=== PATIENT | female | born 2000 | race Caucasian/White ===

== ENCOUNTER 2018-12-03 08:13 | Inpatient (IN) | payer MEDICAID ==
[~2018-12-03] VITALS: Ht 152.4 cm; Wt 75.7 kg
[2018-12-03 08:18] VITALS: Ht 152.4 cm; Wt 75.7 kg
[2018-12-03 08:19] VITALS: BP 120/63; PULSE 106; RESP 17
[2018-12-03] MEDS ORDERED: AMPICILLIN 2 GM/NS (PMX) 100 ML IV ONE (08:30)
[2018-12-03] MEDS ORDERED: LIDOCAINE 1% (MPF) 30 ML INJ INJ PRN (08:30)
[2018-12-03] MEDS ORDERED: OXYTOCIN 30 UNITS/LR 500 ML IV SCH ×3 (08:30→23:00)
[2018-12-03] MEDS ORDERED: CARBOPROST 250 MCG INJ IM PRN (08:30)
[2018-12-03] MEDS ORDERED: MISOPROSTOL 200 MCG TAB PR PRN (08:30)
[2018-12-03] MEDS ORDERED: METHYLERGONOVINE 0.2 MG INJ IM PRN (08:30)
[2018-12-03] MEDS ORDERED: OXYTOCIN 30 UNITS/LR 500 ML IV PRN (08:30)
[2018-12-03] MEDS: LACTATED RINGER'S 1,000 ML IV SCH ×3 (09:25→23:48)
[2018-12-03] MEDS ORDERED: PNV11TAB PO (09:26)
--- NOTE | 2018-12-03 10:30 | TRIAGE ---
OB Triage Datetime Report Generated by CPN: 12/03/2018 10:29 Datetime: 12/03/2018 09:23 Maternal Assessment Level of Consciousness: Fully Conscious DTR's/Clonus: DTRs 2+ Headache: Denies Nausea/Vomiting: Denies RUQ Epigastric Pain: Denies Labor Evaluation Frequency: 1-2-4 Monitor Mode: External Duration (sec)2399: 60-80 Quality: Mild Pattern: Normal: <= 5 Contractions in 10 Minutes Resting Tone [place]: Relaxed Heart Rate FHR Baseline Rate: 140 Monitor Mode: External US FHR Baseline Changes: No Baseline Change Variability: Moderate 6-25 bpm Decelerations: None Category: Category I Membrane Status: Intact Datetime: 12/03/2018 09:17 Labor Evaluation Frequency: 1-3 Monitor Mode: External Duration (sec)2399: 50-60 Quality: Mild Pattern: Normal: <= 5 Contractions in 10 Minutes Resting Tone [place]: Relaxed Heart Rate FHR Baseline Rate: 140 Monitor Mode: External US FHR Baseline Changes: No Baseline Change Variability: Moderate 6-25 bpm Accelerations: 15X15 Decelerations: None Category: Category I Datetime: 12/03/2018 09:16 Vaginal Exam Dilatation (cms): 3.0 Effacement (%): 70 Station: -2 Exam By: DR PRIETO Vaginal Bleeding: None Cervix, Consistency: Soft Cervix, Position: Anterior Presentation 'A': Cephalic Lie 'A': Longitudinal Datetime: 12/03/2018 08:42 Assessment Type: Admission Assessment Time of Arrival: 12/03/2018 08:42 EGA: 39.4 Arrived By: Ambulatory Arrived From: triage Vaginal Bleeding: Small Maternal Assessment Level of Consciousness: Fully Conscious DTR's/Clonus: DTRs 2+; No Clonus Headache: Denies Blurred Vision: No Respiratory Effort: Unlabored; Regular Rhythm; Equal Expansion Breath Sounds, Left: Clear and Equal Breath Sounds, Right: Clear and Equal Nausea/Vomiting: Denies RUQ Epigastric Pain: Denies Lower Extremities Edema: Bilateral Lower Extremities Degree: 1+ Upper Extremities Edema: None Degree: None Facial Edema: None Fall Risk Assessment History of Falling: (0) No Secondary Diagnosis: (0) No Ambulatory Aid: (0) Bedrest/Nurse Assist IV Therapy: (0) No Gait: (0) Normal/Bedrest/Immobile Mental Status: (0) Oriented to Own Ability Fall Score: 0 Fall Risk Score Definition: No Risk: No action required Labor Evaluation Frequency: 2-4 Duration (sec)2399: 50-60 Quality: Mild Pattern: Normal: <= 5 Contractions in 10 Minutes Resting Tone [place]: Relaxed Pain Assessment Pain Scale: 4 Pain Presence: Intermittent Pain Type: Cramping; Contraction Pain Location: Abdomen; Back Pain Goal: 6 Vaginal Exam Dilatation (cms): 3.0 Effacement (%): 70 Station: -2 Membrane Status: Intact Datetime: 12/03/2018 08:24 Assessment Type: Triage Maternal Assessment Level of Consciousness: Fully Conscious DTR's/Clonus: DTRs 2+; No Clonus Headache: Denies Blurred Vision: No Respiratory Effort: Unlabored; Regular Rhythm; Equal Expansion Breath Sounds, Left: Clear and Equal Breath Sounds, Right: Clear and Equal Nausea/Vomiting: Denies RUQ Epigastric Pain: Denies Lower Extremities Edema: None Degree: None Upper Extremities Edema: None Degree: None Facial Edema: None Fall Risk Assessment History of Falling: (0) No Secondary Diagnosis: (0) No Ambulatory Aid: (0) Bedrest/Nurse Assist IV Therapy: (0) No Gait: (0) Normal/Bedrest/Immobile Mental Status: (0) Oriented to Own Ability Fall Score: 0 Fall Risk Score Definition: No Risk: No action required Datetime: 12/03/2018 08:22 Time of Arrival: 12/03/2018 08:05 EGA: 39.4 Arrived By: Ambulatory Arrived From: Home Chief Complaint: pt. came to hospital c/uo uc since 0400am, q3mins apart, pain level 5/10, deny sro m, deny vag. bleeding Movement: Present Time Contractions Began: 12/03/2018 04:00 Rupture of Membranes: Denies Vaginal Bleeding: Normal Show Vaginal Discharge: Denies Recent Sexual Intercouse: Denies Abdominal Trauma: Not Applicable Patient Complaints: Contractions Time Provider Notified: 12/03/2018 08:26 Provider Notified: Initial Plan: r/o labor Datetime: 12/03/2018 08:21 Presentation 'A': Cephalic Datetime: 12/03/2018 08:19 Vaginal Exam Dilatation (cms): 3.0 Effacement (%): 70 Station: -2 Exam By: edy rezac
--- NOTE | 2018-12-03 12:05 | PREOPHP ---
DATE OF ADMISSION: 12/03/2018 HISTORY OF PRESENT ILLNESS: 18-year-old 1, para 0, EDC 12/06/2018 intrauterine at 39 weeks and 4 days gestational age, presented to triage in labor. She denies any vaginal bleeding or discharge. [facility] care took place at [facility]. PAST MEDICAL HISTORY: None. MEDICATIONS: vitamins. PAST SURGICAL HISTORY: None. OBSTETRIC HISTORY: Primigravida. GYNECOLOGIC HISTORY: 10, regular 3 to 4 days. Denies any sexually transmitted disease. Sexually active with 1 partner. SOCIAL HISTORY: Denies any smoking, drugs or alcohol. FAMILY HISTORY: None. REVIEW OF SYSTEMS: All within normal except history of present illness. PHYSICAL EXAMINATION: HEENT: Within normal. LUNGS: CTA bilateral. CARDIOVASCULAR: S1, S2, regular rhythm. ABDOMEN: Gravid, nontender. Negative CVA bilateral. EXTREMITIES: Negative calf tenderness. PELVIC: Vaginal exam / -2 intact. heart tracing category 1. [place] regular contractions. ASSESSMENT: Intrauterine at term in labor. PLAN: Admit patient for expected management, consider Pitocin as needed. Dictated By: TOM CONRAD/TASHA Conf#: [id number] DID#: [id number] CC: TOM PRIETO MD;*EndCC* MTDD
[2018-12-03] MEDS ORDERED: AMPICILLIN 1 GM/NS (PMX) 50 ML IV SCH (12:30)
[2018-12-03] MEDS: BUTORPHANOL 2 MG INJ IV PRN (20:06)
[2018-12-04] MEDS: BUTORPHANOL 2 MG INJ IV PRN (01:56)
[2018-12-04] MEDS: LACTATED RINGER'S 1,000 ML IV SCH ×3 (02:23→04:33)
[2018-12-04] MEDS ORDERED: FENTAnyl 2MCG/ML-ROPIV 0.2% 100 ML ONE (03:51)
[2018-12-04] MEDS ORDERED: FENTAnyl 2MCG/ML-ROPIV 0.2% 100 ML BAG EPI SCH (04:00)
[2018-12-04] MEDS ORDERED: NALOXONE (0.4 MG/ML) INJ IV PRN (04:00)
--- NOTE | 2018-12-04 04:00 | PREAC ---
Date/Time of Note Date/Time of Note DATE: 12/04/18 TIME: 03:59 Anesthesia Eval and Record Evaluation Time Pre-Procedure Interview DATE: 12/04/18 TIME: 03:59 Age 18 Sex female NPO: 8 hrs Preoperative diagnosis Labor Pain Planned procedure Labor Epidural Past Medical History Past Medical History: Includes : : (1), Para: (0), Gestational age: (39) Surgery & Anesthesia Issues No known issue Meds Anticoagulation: No Beta Vincenzo within 24 hr: No Reason Beta Vincenzo not given: Pt. not on B-Vincenzo Reported Medications [id number] ( 19) 1 Each Tablet, 1 TAB PO DAILY, TAB 12/03/18 Current Medications Lactated Ringer's 1,000 ml @ 125 mls/hr Q8H IV Last administered on 12/04/18at 03:29; Admin Dose 125 MLS/HR; Start 12/03/18 at 08:20 Butorphanol Tartrate (Stadol) 2 mg Q2H PRN IV .PAIN Last administered on 12/04/18at 01:56; Admin Dose 2 MG; Start 12/03/18 at 08:30 Lidocaine (Xylocaine 1% (Mpf)) 30 ml ONCE PRN INJ .EPISIOTOMY; Start 12/03/18 at 08:30 Oxytocin/Lactated Ringer's 500 ml @ 500 mls/hr ONCE POST IV ; Start 12/03/18 at 08:30 Oxytocin/Lactated Ringer's 500 ml @ 125 mls/hr POST IV ; Start 12/03/18 at 08:30 Oxytocin/Lactated Ringer's 500 ml @ 0 mls/hr ONCE PRN IV .VAGINAL BLEEDING; Start 12/03/18 at 08:30 Methylergonovine Maleate (Methergine) 0.2 mg ONCE PRN IM .VAGINAL BLEEDING; Start 12/03/18 at 08:30 Carboprost Tromethamine (Hemabate) 250 mcg ONCE PRN IM .VAGINAL BLEEDING; Start 12/03/18 at 08:30 Misoprostol (Cytotec) 1,000 mcg ONCE PRN OH .VAGINAL BLEEDING; Start 12/03/18 at 08:30 Oxytocin/Lactated Ringer's 500 ml @ 0 mls/hr FOR AUGMENTATION IV Last administered on 12/03/18at 23:47; Admin Dose 1 MLS/HR; Start 12/03/18 at 23:00 Meds reviewed: Yes Allergies Coded Allergies: No Known Allergy (Unverified , 12/03/18) Allergies Reviewed: Yes Labs/Studies Labs Reviewed: Reviewed by anesthesiologist Result Diagram: 12/03/18 0850 Laboratory Tests 12/03/18 08:50 Blood Bank Test 12/03/18 08:50 Antibody Screen NEGATIVE Blood Type O POSITIVE Rh Immune Globulin Candidate NO test: Positive Studies: ECG (n/a), CXR (n/a) Pre-procedure Exam Last vitals Vital Signs Date Temp Pulse Resp B/P (MAP) Pulse Ox O2 O2 Flow FiO2 Time Delivery Rate 12/03/18 98.2 106 17 120/63 08:19 (82) Airway: Adequate mouth opening, Adequate thyromental dist Mallampati: Mallampati II Teeth: Normal Lung: Normal Heart: Normal ASA Physical Status ASA physical status: 2 Emergency: None Planned Anesthetic Neuraxial: Epidural Planned Pain Management Epidural Pre-operative Attestations Prior to commencing anesthesia and surgery, the patient was re-evaluated, there was verification of: *The patient's identity *The results of appropriate recent lab work and preoperative vital signs *The above evaluation not changing prior to induction *Anesthetic plan, risk benefits, alternative and complications discussed with patient/family; questions answered; patient/family understands, accepts and wishes to proceed. BRUCE MONTALVO MD Dec 04, 2018 04:00
--- NOTE | 2018-12-04 04:02 | PAC ---
Date/Time of Note Date/Time of Note DATE: 12/04/18 TIME: 04:01 Post-Anesthesia Notes Post-Anesthesia Note Last documented vital signs Vital Signs Date Temp Pulse Resp B/P (MAP) Pulse Ox O2 O2 Flow FiO2 Time Delivery Rate 12/04/18 98.2 91 17 120/63 97 Room Air 04:09 (82) Activity: WNL Respiratory function: WNL Cardiovascular function: WNL Mental status: Baseline Pain reasonably controlled: Yes Hydration appropriate: Yes Nausea/Vomiting absent: Yes BRUCE MONTALVO MD Dec 04, 2018 04:02
[2018-12-04] MEDS ORDERED: CEFAZOLIN 2 GM/50 ML (PMX) 50 ML IVPB ONE (08:00)
[2018-12-04] MEDS ORDERED: MINERAL OIL LIGHT 10 ML VIAL TOP ONE (08:00)
[2018-12-04] MEDS ORDERED: OXYTOCIN 30 UNITS/LR 500 ML IV SCH (08:13)
--- NOTE | 2018-12-04 08:13 | LDN ---
Date/Time of Note Date/Time of Note DATE: 12/04/18 TIME: 08:10 Delivery Summary Weeks of Gestation 39 Assisted Vaginal Delivery: Vacuum (at plus 3 station, 5 seconds no pop offs, secondary to maternal exhaustion risk of vacuum explained in [place] before applying. no complication) Placenta Delivered: Spontaneously, Manually Meconium: none (terminal meconium) Episiotomy: Yes Laceration repair: rmle repair with 2-0 and 3-0 chromic Anesthesia type: Epidural Estimated blood loss: 200 Sponge & Needle done & correct: Yes All needle counts correct: Yes Any foreign bodies felt in the: No Delivery Information Sex Infant Sex: female Apgars 1 Minute: 9 5 Minute: 9 Suctioning Nose & mouth suctioned at christopher: No Delee suction performed: No Umbilical Cord Umbilical cord with: 3 Vessels Cord presentations: no nuchal cord Cord Blood was obtained: Yes TOM PRIETO MD Dec 04, 2018 08:13
[2018-12-04] MEDS ORDERED: WITCH HAZEL/GLYCERIN PAD PR PRN (08:30)
[2018-12-04] MEDS ORDERED: LANOLIN HPA 1 PKT TOP PRN (08:30)
[2018-12-04] MEDS ORDERED: OXYTOCIN 30 UNITS/LR 500 ML IV PRN (08:30)
[2018-12-04] MEDS ORDERED: NACL 0.9% 3 ML SYG IV SCH (08:30)
[2018-12-04] MEDS ORDERED: OXYCODONE/ASPIRIN (4.88/325) TAB PO PRN (08:30)
[2018-12-04] MEDS ORDERED: ONDANSETRON 4 MG INJ IV PRN (08:30)
[2018-12-04] MEDS ORDERED: MISOPROSTOL 200 MCG TAB PR PRN (08:30)
[2018-12-04] MEDS ORDERED: BENZOCAINE 20% 56 ML SPRAY TOP PRN (08:30)
[2018-12-04] MEDS ORDERED: CARBOPROST 250 MCG INJ IM PRN (08:30)
[2018-12-04] MEDS ORDERED: ACETAMINOPHEN 325 MG TAB PO PRN (08:30)
[2018-12-04] MEDS ORDERED: METHYLERGONOVINE 0.2 MG INJ IM PRN (08:30)
[2018-12-04 10:15] VITALS: BP 124/70; PULSE 73; RESP 18
[2018-12-04] MEDS: SENNA/DOCUSATE NA (8.6MG/50MG) TAB PO SCH ×2 (10:15→21:34)
[2018-12-04 10:45] VITALS: BP 122/63; PULSE 74; RESP 18
[2018-12-04] MEDS: IBUPROFEN 600 MG TAB PO SCH ×2 (11:46→17:33)
[2018-12-04 11:54] VITALS: BP 121/65; PULSE 75; RESP 18
[2018-12-04 15:39] VITALS: BP 100/56; PULSE 92; RESP 18
[2018-12-04] MEDS: OXYCODONE/ASPIRIN (4.88/325) TAB PO PRN (18:59)
[2018-12-04 20:30] VITALS: BP 113/61; PULSE 79; RESP 18
[2018-12-05] MEDS: IBUPROFEN 600 MG TAB PO SCH ×4 (00:17→17:30)
[2018-12-05 00:23] VITALS: BP 105/56; PULSE 71; RESP 18
[2018-12-05 04:20] VITALS: BP 100/55; PULSE 94; RESP 16
--- NOTE | 2018-12-05 06:17 | PD.PPDC ---
PRINTING SPECIALIST Discharge Instruction Condition [id number] Patient Condition: [id number] Fair Diet [id number] Diet: Emarg5j Resume Regular Diet Activity/Restrictions [id number] Activity: Fwtcu8i Normal Activity May Shower [id number] Restrictions: Moese3l No Exercising No Lifting No Driving No Sexual Activity Nothing in the Vagina No [place] No Tampons, douche Follow-up Follow-up with Physician: 3, Week/Weeks Return to clinic for Gninc9Bh MANAGER OF FINANCIAL Instructions: Byjpc6h Fever greater than 101 Chills Worsening abdominal pain Excessive Vaginal Bleeding More than 2 pads per hour Unable to tolerate diet [id number] OB Instructions: Foxrr0b Breast Tenderness Depression Blurried Vision Headache [id number] Surgical Instructions: Goida4d Incisional Drainage Incisional Redness TOM PRIETO MD Dec 05, 2018 06:17
--- NOTE | 2018-12-05 06:19 | DS ---
Date/Time of Note Date/Time of Note DATE: 12/05/18 TIME: 06:18 Obstetrical Discharge Record Final Diagnosis Final Diagnosis: Term delivered Vaginal Delivery Obstetrical Delivery: Spontaneous, Episiotomy, Repaired, Vacuum Extraction Condition on Discharge Physical Assessment Last Vitals: stable afebrile Voiding: Yes Bowel Movement: Yes Breast: Soft, non-tender, Filling Fundus: Firm Abdomen and Incision: soft nt Episiotomy: intact Calf Tenderness: No Patient Condition: TOM Buchanan MD Dec 05, 2018 06:19
[2018-12-05 08:00] VITALS: BP 90/52; PULSE 91; RESP 18
[2018-12-05] MEDS: OXYCODONE/ASPIRIN (4.88/325) TAB PO PRN ×2 (08:39→20:46)
[2018-12-05] MEDS: SENNA/DOCUSATE NA (8.6MG/50MG) TAB PO SCH ×2 (08:40→20:46)
[2018-12-05 15:59] VITALS: BP 107/61; PULSE 89; RESP 18
[2018-12-05 20:30] VITALS: BP 120/60; PULSE 99; RESP 19
[2018-12-06] MEDS: IBUPROFEN 600 MG TAB PO SCH ×3 (00:22→12:07)
[2018-12-06 04:37] VITALS: BP 110/65; PULSE 95; RESP 16
[2018-12-06 08:00] VITALS: BP 116/74; PULSE 91; RESP 19
[2018-12-06] MEDS: OXYCODONE/ASPIRIN (4.88/325) TAB PO PRN (10:07)
[2018-12-06] MEDS: SENNA/DOCUSATE NA (8.6MG/50MG) TAB PO SCH (10:08)
== END 2018-12-06 15:30 | disposition home or self-care (01) | DRG 807 ==
LOC: OBT 08:13 → L-D 08:13 → OBT 08:30 → L-D 08:30 → PP1 12-04 10:05
PROVIDERS: ADMIT Obstetrics & Gynecology; ATTEND Obstetrics & Gynecology
PROC: 10E0XZZ Delivery of Products of Conception, External Approach (ICD-10-PCS; principal; 2018-12-04)
PROC: 0HQ9XZZ Repair Perineum Skin, External Approach (ICD-10-PCS; 2018-12-04)
DX: O70.0 First degree perineal laceration during delivery (principal); Z37.0 Single live birth; O77.0 Labor and delivery complicated by meconium in amniotic fluid; Z3A.39 39 weeks gestation of pregnancy
CPT/HCPCS: 62319; 76815; 85014; 85018; 85025; 85610; 85730; 86592; 86850; 86900; 86901; 87340; 99464; G0463; J0595; J0690; J2210; J2590; J3010; J7120